=== PATIENT | male | born 1965 | race Caucasian/White ===

== ENCOUNTER 2024-05-06 11:46 | Observation (INO) ==
[2024-05-06] MEDS: Iodixanol (CONTRAST) 320 MG/ML 100 ML SDV IV ONE (12:42)
[2024-05-06 12:48] LABS: ABS Eosinophils 0.1 10^3/uL (0.0-0.5); ABS Lymphocytes 1.2 10^3/uL (1.0-4.8); ABS Monocytes 0.5 10^3/uL (0.0-1.1); ABS Neutrophils 5.1 10^3/uL (1.5-7.6); ABS Nucleated RBC 0.01 10^3/ul; Eosinophil % 0.9 %; Hematocrit 40.7 % (38-53); Hemoglobin 13.9 g/dL (13.2-16.3); Mean Corpuscular Hemoglobin 27.6 pg (27-33); Mean Corpuscular Hgb Conc 34.2 g/dL (31-36); Mean Corpuscular Volume 80.6 fL (80-97); Mean Platelet Volume 6.8 fL (7.5-11.2); Nucleated Red Blood Cells % 0.1 %/100WBC (0.0-0.8); Platelet Count 221 10^3/uL (150-450); Red Blood Count 5.05 10^6/uL (4.06-5.63); Red Cell Distribution Width 13.7 % (12-17); White Blood Count 6.9 10^3/uL (3.6-10.2)
[2024-05-06 13:00] LABS: Activated Partial Thrombo Time 32.1 seconds (26.0-38.0); INR 1.04 (0.85-1.14)
[2024-05-06] MEDS: Aspirin EC 325 mg TAB.EC PO ONE (13:08)
[2024-05-06 13:28] LABS: Albumin 4.3 g/dL (3.2-5.2); Albumin/Globulin Ratio 1.5 (1-3); Calcium 9.7 mg/dL (8.6-10.3); Creatinine, Serum 0.92 mg/dL (0.67-1.17); Direct Bilirubin 0.1 mg/dL (0.03-0.18); Globulin 2.9 g/dL (2-4); Indirect Bilirubin 0.3 mg/dL (0.3-1.0); Potassium 4.3 mmol/L (3.5-5.0); Total Bilirubin 0.4 mg/dL (0.2-1.0); Total Protein 7.2 g/dL (6.4-8.9); eGFR CKD-EPI 95.2 (>60)
[2024-05-06 13:36] LABS: Urine Appearance Clear; Urine Bilirubin Negative (Negative); Urine Blood 2+ (Negative); Urine Color Light-Yellow; Urine Glucose Negative (Negative); Urine Ketones Negative (Negative); Urine Nitrite 2+ (Negative); Urine Protein Trace (Negative); Urine Specific Gravity 1.038 (1.002-1.030); Urine Urobilinogen Negative (Negative)
[2024-05-06 14:07] LABS: High Sensitivity Troponin 1 Hr 3 pg/mL (<20)
[2024-05-06 14:07] LABS: Urine Bacteria 1+ /HPF (Absent); Urine Red Blood Cell 3+(>10/hpf) /HPF (0-Trace); Urine White Blood Cell 3+(>20/hpf) /HPF (0-Trace)
[2024-05-06] MEDS ORDERED: Sulfur Hexaflouride MICROSPHR 25 MG VIAL IV PRN (15:13)
[2024-05-06 15:57] LABS: TSH Ultra Thyroid Stim Horm 1.45 mcIU/mL (0.34-5.60)
[2024-05-06] MEDS: cefTRIAXone 1 gm/50 mL D5W 1 GM/50 ML BAG IV SCH (16:21)
[2024-05-06 18:32] LABS: PSA Screen Ultra Sensitive 24.222 ng/mL (0-4.000)
[2024-05-06] MEDS: Enoxaparin 40 MG/0.4 ML SYR SUBCUT SCH (21:49)
[2024-05-07 06:24] LABS: Hematocrit 38.4 % (38-53); Hemoglobin 12.8 g/dL (13.2-16.3); Mean Corpuscular Hgb Conc 33.2 g/dL (31-36); Mean Corpuscular Volume 81.3 fL (80-97); Mean Platelet Volume 7.1 fL (7.5-11.2); Platelet Count 229 10^3/uL (150-450); Red Blood Count 4.73 10^6/uL (4.06-5.63); Red Cell Distribution Width 13.6 % (12-17); White Blood Count 7.2 10^3/uL (3.6-10.2)
[2024-05-07 06:38] LABS: Creatinine, Serum 0.83 mg/dL (0.67-1.17); Potassium 4.4 mmol/L (3.5-5.0); eGFR CKD-EPI 100.2 (>60)
[2024-05-07] MEDS: Influenza Vaccine *TRI* 2024-25* 0.5 ML SYRINGE IM ONE (08:33)
[2024-05-07 13:50] VITALS: BP 110/68
== END 2024-05-07 15:00 | disposition home or self-care (01) ==
LOC: EDHOLD 11:46 → ED 11:46 → SUATTDRO 13:48 → MEDTELE 21:39
PROVIDERS: ADMIT Family Medicine; ATTEND Internal Medicine